=== PATIENT | female | born 1955 | race Caucasian/White ===

== ENCOUNTER → 2017-03-13 | Outpatient (CLI) | payer BC ==
[~2017-03-13] MED LIST: ATOR-54 PO; DTR5 PO; GLCSR500 PO
--- NOTE | 2017-03-15 15:31 | MAMMOGRAPHY REPORT ---
BILATERAL DIGITAL SCREENING MAMMOGRAM WITH CAD: 03/13/2017 CLINICAL HISTORY: Routine screening. Patient has no complaints. TECHNIQUE: Current study was also evaluated with a Computer Aided Detection (CAD) system. Bilateral CC and MLO views were obtained. COMPARISON: Comparison is made to exams dated: 03/07/2016 mammogram, 02/17/2014 mammogram, 02/23/2015 ma mmogram, 02/04/2013 mammogram, 01/23/2011 ultrasound, and 01/23/2011 mammogram - [facility] enter. BREAST COMPOSITION: There are scattered areas of fibroglandular density in both breasts. FINDINGS: There is a mildly prominent right axillary lymph node seen on the MLO view, which was not well-visualized on prior exams. A left axillary lymph node is partially visualized on the exam which appears similar to prior exams including the 2012 exam. Although these may represent normal axillar y lymph nodes, bilateral axillary ultrasound is recommended for further evaluation. The remainder of both breasts are stable compared to prior exams, without suspicious masses, calcific ations, or areas of architectural distortion noted. IMPRESSION: ACR BI-RADS CATEGORY 0: INCOMPLETE EVALUATION: NEED ADDITIONAL IMAGING EVALUATION Bilateral axillary lymph nodes, for which ultrasound is recommended for further evaluation. The conchita ent will be called to schedule an appointment. Approximately 10% of breast cancers are not detected with mammography. A negative mammographic report should not delay biopsy if a clinically suggestive mass is present. Estefany Fagan M.D. /:03/14/2017 17:23:37 An/Ssn 2 4 Operator: Sharon ADAMS)([place]), [facility] letter sent: Addl Imaging 0 BI-RADS Code: ACR BI-RADS Category 0: Incomplete Evaluation: Need Additional Imaging Evaluation
== END | disposition home or self-care (01) ==
LOC: C.MAMM 17:16
PROVIDERS: ATTEND Obstetrics & Gynecology
DX: Z12.31 Encounter for screening mammogram for malignant neoplasm of breast (principal); R92.8 Other abnormal and inconclusive findings on diagnostic imaging of breast

== ENCOUNTER → 2017-03-21 | Outpatient (CLI) | payer BC ==
--- NOTE | 2017-03-21 15:38 | MAMMOGRAPHY REPORT ---
ULTRASOUND OF BOTH BREASTS: 03/21/2017 CLINICAL HISTORY: 62-year-old woman called back from screening mammography for bilateral axillary lym ph nodes. COMPARISON: Comparison is made to exams dated: 03/13/2017 mammogram, 03/07/2016 mammogram, 02/23/2015 m ammogram, 02/17/2014 mammogram, 02/04/2013 mammogram, and 01/17/2011 mammogram - [facility]. FINDINGS: Targeted ultrasound was performed in both axillae. Morphologically normal lymph nodes are seen in both axillae. The largest lymph node in the right axilla midportion measures 2 cm in length and has a slightly undulating and lobulated cortex. Cortical thickness remains within normal limits and measures up to 2.5 mm. Morphologically normal lymph nodes are also identified in the left axill a, with similar appearance of the left lymph nodes with slightly undulating cortices. Cortical thick ness measuring up to 2.6 mm, which is within the range of normal. The lymph nodes seen in both axillae mammographically are most likely benign, given that they have a normal sonographic appearance, and at least the left lymph node was identified on a prior mammogram. However, given that they are newly visualized and have mildly undulating cortices, a short interval follow-up bilateral axillary ultrasound is recommended in 6 months. IMPRESSION: ACR-BI-RADS CATEGORY 3: PROBABLY BENIGN - FOLLOW-UP RECOMMENDED There are symmetric bilateral morphologically normal axillary lymph nodes that are probably benign. The patient denies any current infectious, inflammatory, autoimmune or neoplastic process. Given medhat t they are newly visualized and have mildly undulating cortices, a short interval follow-up targeted bilateral axillary ultrasound is recommended to ensure stability in 6 months. These results and recommendations were discussed with the patient at the time of the exam. Jami Urban M.D. ay/:03/21/2017 14:58:13 Eeg Technologist: Sharon ADAMS)([place]), [facility] letter sent: Follow Up Recommended 3 BI-RADS Code: ACR-BI-RADS Category 3: Probably Benign
== END | disposition home or self-care (01) ==
LOC: C.MAMM 12:45
PROVIDERS: ATTEND Obstetrics & Gynecology
DX: R59.0 Localized enlarged lymph nodes (principal)

== ENCOUNTER → 2017-05-08 | Outpatient (CLI) | payer BC ==
[2017-05-10 11:54] LABS: HERPES SIMPLEX CULT SOURCE GENITAL-VAGINAL; HERPES SIMPLEX VIRUS CULT NOT ISOLATED (NOT ISOLATED)
== END | disposition home or self-care (01) ==
LOC: C.LABSPEC 10:36
PROVIDERS: ATTEND Physician Assistant
DX: R10.2 Pelvic and perineal pain (principal)

== ENCOUNTER → 2017-07-09 | Outpatient (CLI) | payer BC ==
[~2017-07-09] MED LIST changes: +ASPCH81X PO; +CETI10TA84 PO; +DTR/5 PO; +LPT/40 PO; +METF-384 PO; +MOME6000; +MULTTAB58 PO; +OXYC-57 PO; +VITAMIN C PO
== END | disposition home or self-care (01) ==
LOC: C.PATHSPEC 17:13
PROVIDERS: ATTEND Physician Assistant
DX: A63.0 Anogenital (venereal) warts (principal); N90.0 Mild vulvar dysplasia

== ENCOUNTER → 2017-08-20 | Outpatient (CLI) | payer OTHER ==
[~2017-08-20] MED LIST changes: -ASPCH81X PO; -CETI10TA84 PO; -DTR/5 PO; -LPT/40 PO; -METF-384 PO; -MOME6000; -MULTTAB58 PO; -OXYC-57 PO; -VITAMIN C PO
--- NOTE | 2017-08-20 13:30 | MAMMOGRAPHY REPORT ---
BILATERAL DIGITAL DIAGNOSTIC MAMMOGRAM TOMOSYNTHESIS WITH CAD AND TARGETED BILATERAL ULTRASOUND: 2017 CLINICAL HISTORY: Plump bilateral axillary lymph nodes. Patient presented for follow-up. TECHNIQUE: Bilateral MLO tomosynthesis images were obtained to try to include visualization of axilla ry lymph nodes. Current study was also evaluated with a Computer Aided Detection (CAD) system. COMPARISON: Comparison is made to exams dated: 03/21/2017 ultrasound, 03/13/2017 mammogram, 03/07/2016 m ammogram, 02/23/2015 mammogram, 02/17/2014 mammogram, and 02/04/2013 mammogram - [facility] nter. BREAST COMPOSITION: The tissue of both breasts is heterogeneously dense, which may obscure small mas ses. FINDINGS: There are somewhat plump bilateral axillary lymph nodes. The trilobed lymph node projectin g over the superior right pectoralis muscle on the MLO view is stable in size comparing to the 2016 mammograms, measuring 15 mm. No definite lymph node enlargement or new lymph nodes are seen. N o new suspicious breast masses, architectural distortion, asymmetries or new microcalcifications. Targeted ultrasound was performed in both axillae. Several axillary lymph nodes are again seen bilat erally a few subpectoral lymph nodes are also identified. The largest lymph node in the right axilla is seen in the mid axilla measuring 2.1 cm in length, with cortical thickness ranging from 2.0-2.9 m m. This lymph node appears stable in size and cortical thickness comparing to the prior ultrasound. Other lymph nodes identified in the left axillary and subpectoral regions are also stable in size co mparing to the prior ultrasound. However, no prior cross-sectional imaging studies are available and the lymph nodes were not definitely seen on prior remote MLO views and the lymph nodes remain indete rminate. Lymphoid hyperplasia, infectious, inflammatory and neoplastic processes remain differential considerations. Therefore, definitive characterization with tissue sampling is recommended. IMPRESSION: ACR BI-RADS CATEGORY 4: SUSPICIOUS, TARGETED ULTRASOUND ACR BI-RADS CATEGORY 4: SUSPICIO US 1. Ultrasound-guided fine-needle aspiration versus core needle biopsy is recommended for slightly pr ominent bilateral axillary lymph nodes cortices in the upper limits of normal. Could perform FNA wit h attempted core biopsy on the most superficial lymph node identified in the left axilla. These results and recommendations were discussed with the patient at the time of the exam. She tenta tively scheduled the biopsy prior to leaving our department. Approximately 10% of breast cancers are not detected with mammography. A negative mammographic report should not delay biopsy if a clinically suggestive mass is present. Jami Urban M.D. ay/:08/20/2017 10:36:51 Veterinary Technician Instructor: Alfonso NIETO([place])([place]), [facility] letter sent: Abnormal 4/5 BI-RADS Code: ACR BI-RADS Category 4: Suspicious Ultrasound BI-RADS: ACR BI-RADS Category 4: Suspici ous
== END | disposition home or self-care (01) ==
LOC: C.MAMM 08:17
PROVIDERS: ATTEND Obstetrics & Gynecology
DX: R92.8 Other abnormal and inconclusive findings on diagnostic imaging of breast (principal); R59.0 Localized enlarged lymph nodes

== ENCOUNTER → 2017-08-29 | Outpatient (CLI) | payer OTHER ==
--- NOTE | 2017-08-29 08:56 | Discharge Instructions ---
Discharge Instructions Procedure Procedure Date: Aug 29, 2017. Reason for visit: Bilateral Lymph Node Either Or/Fna Possible Core. Discharge Discharge Date: Aug 29, 2017. Discharge Diagnosis: status post axillary biopsy Instructions Activity Recommendations: Additional Limitations (see below) Return to School/Work: no limitations Recommended Home Diet: No Limitations Provider Instructions: ACTIVITY RECOMMENDATIONS: * No lifting, pushing, pulling or exercising the affected side for three days. RETURN TO SCHOOL/WORK: * You may return to work/school after the procedure, but do not perform any strenuous activities for 24 to 48 hours. MEDICATIONS: * Tylenol (two 325 mg) every four to six hours if needed for mild pain (if not allergic to Tylenol). DIET: * Resume previous diet. SPECIAL CARE INSTRUCTIONS: * Keep biopsy site dry for 24 hours. May shower after 24 hours, but do not soak (bathe) incision. * May remove Tegaderm (plastic patch) tomorrow AFTER showering. * Leave the steri-strips on for one week. Allow the steri-strips to fall off by themselves. If not off after one week, you may remove them. You may place a Bandaid crosswise over the strips, if desired. * Apply ice 10 minutes on and 10 minutes off as needed. * Wear a bra at bedtime to sleep more comfortably for 2-3 days. * Your referring physician should have the results after approximately 5 to 7 business days. * Call for unusual bleeding, fever, drainage, etc or if you have any questions call during normal business hours or after hours call Dr Fagan, [phone]. FOLLOW UP VISIT: Follow-up with Referring Physician as scheduled. Allergies Uncoded Allergies: AMOXICILLIN (Allergy, Unknown, 07/07/05) Boris Zhong Recommendations: Call your doctor if: * Temperature above 101 degrees * Pain not relieved by pain medicine ordered * There is increased drainage or redness from any incision * You have any unanswered questions or concerns. Your Doctors Instructions noted above were prepared by provider Estefany Fagan. Patient Signature Section: Patient Instructions Signature Page Nancy Martin Patient (or Guardian) Signature/Date: I have read and understand the instructions given to me by my caregivers. Caregiver/RN/Doctor Signature/Date: The above-named patient and/or guardian has received patient instructions on this date. + Original Patient Signature Page (only) stays with chart. Please make copy for patient.
--- NOTE | 2017-08-29 15:08 | MAMMOGRAPHY REPORT ---
ULTRASOUND GUIDED BIOPSY LEFT BREAST: 08/29/2017 CLINICAL HISTORY: Prominent bilateral axillary lymph nodes. Biopsy of one of the left axillary lymph nodes was recommended for further evaluation. PATIENT CONSENT: The procedure, risks and benefits were discussed with the patient and informed writt en consent was obtained. A timeout was performed immediately prior to the procedure. PROCEDURE DESCRIPTION: With ultrasound guidance, aseptic technique, and lidocaine as the local anesth etic (1% lidocaine to anesthetize the skin and 1% lidocaine with epinephrine to anesthetize the deepe r tissues), one of the prominent left axillary lymph nodes was sampled 6 times with an 18-gauge Quick -Core biopsy needle. Immediately thereafter, with ultrasound guidance, aseptic technique, and lidoc jennifer as the local anesthetic, a metallic localizer clip was placed into the lymph node. Direct press ure was applied to the site immediately post procedure and hemostasis was achieved. The patient teresa erated the procedure without complication. She was given wound care instructions. The specimens were sent to pathology for analysis. Postprocedural mammograms were not obtained as it was felt that the clip would not be visualized due to the far posterior location of the lymph node, and the clip was w ell visualized on ultrasound. COMPARISON: Comparison is made to exams dated: 08/20/2017 mammogram, 08/20/2017 ultrasound, 03/21/2017 ult rasound, 03/13/2017 mammogram, 03/07/2016 mammogram, and 02/23/2015 mammogram - [facility] nter. IMPRESSION: ULTRASOUND GUIDED BIOPSY Ultrasound guided core needle biopsy of one of the prominent axillary lymph nodes in the left axilla, with clip placement. The patient will receive pathology results from her referring provider. Estefany Fagan M.D. ah/:08/29/2017 09:14:16 [employer] Strip Mill Supervisor: Yudith NIETO(R)(M), [facility]
== END | disposition home or self-care (01) ==
LOC: C.MAMM 08:08
PROVIDERS: ATTEND Obstetrics & Gynecology
DX: R59.0 Localized enlarged lymph nodes (principal); D47.9 Neoplasm of uncertain behavior of lymphoid, hematopoietic and related tissue, unspecified

== ENCOUNTER → 2017-09-16 | Day surgery (SDC) | payer OTHER ==
--- NOTE | 2017-09-11 14:55 | DIAGNOSTIC IMAGING REPORT ---
CHEST 2 VIEWS ROUTINE CLINICAL HISTORY: Z01.818 Pre-op testing preoperative evaluation COMPARISON STUDY: No previous studies for comparison. FINDINGS: The bones soft tissues and hemidiaphragms are normal. The cardiomediastinal silhouette is normal. The lungs are clear. The pulmonary vasculature is normal. IMPRESSION: Negative chest. The above report was generated using voice recognition software. It may contain grammatical, syntax or spelling errors. Electronically signed by: Cj Nath M.D. 09/11/2017 2:53 PM Dictated Date/Time: 09/11/2017 2:51 PM
[2017-09-11 15:33] LABS: BASO ABS # 0.06 K/uL (0-0.2); EOS % 4.5 %; EOS ABS # 0.28 K/uL (0-0.5); HEMATOCRIT 43.4 % (37-47); HEMOGLOBIN 14.3 g/dL (12.0-16.0); IG# 0.01 K/uL (0.00-0.02); LYMPH ABS # 1.88 K/uL (1.2-3.4); MEAN CELL VOLUME 88.6 fL (80-100); MEAN CORPUSCULAR HEMOGLOBIN 29.2 pg (25-34); MEAN CORPUSCULAR HGB CONC 32.9 g/dl (32-36); MEAN PLATELET VOLUME 10.4 fL (7.4-10.4); MONO % 7.5 %; MONO ABS # 0.47 K/uL (0.11-0.59); NEUT % 56.8 %; NEUT ABS # 3.57 K/uL (1.4-6.5); PLATELET COUNT 230 K/uL (130-400); RED CELL DISTRIBUTION WIDTH CV 12.3 % (11.5-14.5); RED CELL DISTRIBUTION WIDTH SD 39.3 fL (36.4-46.3); WHITE BLOOD COUNT 6.27 K/uL (4.8-10.8)
[2017-09-11 15:42] LABS: PTT PATIENT 26.1 SECONDS (21.0-31.0)
[2017-09-11 15:55] LABS: BLOOD UREA NITROGEN 19 mg/dl (7-18); CALCIUM 9.2 mg/dl (8.5-10.1); CARBON DIOXIDE 30 mmol/L (21-32); CREATININE 0.76 mg/dl (0.60-1.20); GLUCOSE 162 mg/dl (70-99); POTASSIUM 3.8 mmol/L (3.5-5.1); SODIUM 139 mmol/L (136-145)
[2017-09-12 13:25] VITALS: Ht 166.4 cm; Wt 60.9 kg
[~2017-09-16] VITALS: Ht 166.4 cm; Wt 60.9 kg
[~2017-09-16] MED LIST changes: +ASPCH81X PO; -ATOR-54 PO; +ATROPINE SULFATE 0.1 MG/ML 5ML SYR IV PRN; +BUPIVACAINE 0.5 % 5 MG/1 ML MPF 30ML VIAL ONE; +CETI10TA84 PO; +CHECK SCOPOLAMINE PATCH PLACEMENT SCH; +CLINDAMYCIN PHOS 150 MG/ML 2 ML VIAL IV SCH; +DEXAMETHASONE SOD INJ 4 MG/ML VIAL ONE; +DTR/5 PO; -DTR5 PO; +EpHEDrine SULFATE INJ 50 MG/ML AMP IV PRN; +FENTANYL CITRATE INJ 50 MCG/1 ML 2 ML VIAL ONE; -GLCSR500 PO; +HYDROmorphone INJ 1 MG/ML SYR IV PRN; +LACTATED RINGER'S 1000ML 1,000 ML IV SCH; +LIDOCAINE HCL 2% 2 ML VIAL (20MG/ML) ONE; +LPT/40 PO; +METF-384 PO; +MIDAZOLAM HCL 1 MG/ML 2ML VIAL ONE; +MOME6000; +MULTTAB58 PO; +ONDANSETRON INJ 2 MG/ML 2 ML VIAL IV PRN; +ONDANSETRON INJ 2 MG/ML 2 ML VIAL ONE; +OXYC-57 PO; +OXYCODONE/ACETAMINOPHEN 5-325 TAB PO PRN; +PROMETHAZINE HCL INJ 12.5 MG in SODIUM CHLORIDE 0.9% 50ML 50 ML IV PRN; +PROPOFOL IV EMULSION 10 MG/ML 20 ML VIAL IV ONE; +SCOPOLAMINE 1.5 MG TDSY TD ONE; +SCOPOLAMINE 1.5 MG TDSY TD SCH; +SODIUM CHLORIDE 0.9% 1000ML 1,000 ML IV SCH; +VITAMIN C PO
[2017-09-16] MEDS: LACTATED RINGER'S 1000ML 1,000 ML IV SCH ×2 (08:40→10:47)
--- NOTE | 2017-09-16 08:41 | History & Physical Bridge - SC ---
H&P Re-Evaluation Bridge Note: I have examined the patient, reviewed the History & Physical and in the interval since the performance of the History & Physical I have noted the following changes of clinical significance: Wire placed, films reviewed. No changes noted
--- NOTE | 2017-09-16 09:46 | [facility] Post Operative Brief Note ---
Immediate Operative Summary Operative Date Sep 16, 2017. Pre-Operative Diagnosis Left axillary Lymphadenopathy Post-Operative Diagnosis Same as pre-op Procedure(s) Performed Left Axillary Lymph Node Biopsy With Needle (Wire) Localization Surgeon Dr. Gonzalez Bat Boy/Girl Surgeon(s) Shira LOPEZ Estimated Blood Loss 5ML Findings Consistent with Post-Op Diagnosis Specimens A.Left axillary lymph node biopsy Out of patient @ 0924 [facility] Drains None Anesthesia Type General Complication(s) none Disposition Accompanied Pt To Recovery: no Disposition: Recovery Room / PACU
--- NOTE | 2017-09-16 09:53 | [facility] Operative Report ---
Operative Report Operative Date Sep 16, 2017. Pre-Operative Diagnosis Left axillary Lymphadenopathy Post-Operative Diagnosis Left axillary lymphadenopathy Procedure(s) Performed Wire localized left axillary lymph node excisional biopsy Surgeon Dr. Gonzalez Soliciting Freight Agent Surgeon(s) Shira LOPEZ Estimated Blood Loss 5ML Findings Wire followed to small lymph node which was excised. A few additional lymph nodes were taken. Mammography called and confirmed excisional specimen. Good hemostasis. Specimens A.Left axillary lymph node biopsy Out of patient @ 0921 Sent to breast care center B.Left axillary lymph node-fresh Drains None Anesthesia General Complication(s) None Disposition Recovery Room / PACU Indications 62-year-old female with nonpalpable lymphadenopathy seen on screening mammogram , core needle biopsy indeterminant. Plan for wire localized left axillary lymph node excisional biopsy. The risks of the procedure were discussed, all questions were answered, and the patient agreed to proceed with surgery as planned. Description of Procedure Prior to the procedure the patient went to mammography and had a wire placed in the left axilla. The films were reviewed for preoperative incisional planning. The patient was properly identified, consented, and taken to the operating room where she was placed in the supine position. General endotracheal anesthesia was induced. SCDs and a safety belt were placed. Preoperative antibiotics were administered. The patient's left axilla was prepped and draped in the standard sterile fashion. Surgical timeout was performed and all parties were in agreement that this was the correct patient and procedure to be performed and we continued as planned. Local anesthetic was injected along the skin incision. A transverse skin incision was made at the entry point of the wire in a natural skin crease in the axilla and deepened down through the subcutaneous tissue with electrocautery. The fascia was incised and the wire was followed to its terminal end. The wire appeared to be dislodged from the lymph node, but there were multiple small lymph nodes that were excised in this area. The lymphovascular bundle was ligated with 3-0 silk tie, and the lymph nodes were excised and passed off the table as specimen. These were sent to the breast center and mammography confirmed excision of the wire, specimen, and clip. An additional lymph node that was slightly larger was taken in this area and the lymphovascular bundle was tied with 3-0 silk tie. The wound was irrigated and hemostasis was confirmed. The skin was closed with interrupted 3-0 Vicryl deep dermal sutures, followed by 4-0 Monocryl running subcuticular suture. Dermabond was placed over the wound. The patient was extubated in the operating room and taken to the PACU where she recovered without apparent incident. All sponge, instrument and needle counts were correct at the conclusion of the procedure. The patient tolerated the procedure well. The physician's assistant shift supervisor was present and scrubbed for the entire to the procedure. She was essential in positioning the patient, prepping and draping, retraction and exposure, excision of the lymph nodes, closure of the incision, and placement of the dressing. I attest to the content of the Intraoperative Record and any orders documented therein. Any exceptions are noted below.
--- NOTE | 2017-09-16 10:06 | Discharge Instructions-SurgCtr ---
Discharge Instructions Date of Service Sep 16, 2017. Visit Reason for Visit: Left Axillary Lymphadenopathy Discharge Discharge Diagnosis / Problem: Left Axillary Lymphadenopathy Discharge Goals Goal(s): Decrease discomfort, Improve function Medications Stopped Medications Name(s): stopped asa x 1 week. metformin stopped x 3 days. Restart Stopped Medication(s): You may resume your Aspirin therapy tomorrow, 09/17/2017. You may resume your Metformin therapy tomorrow, 09/17/2017 Activity Recommendations Activity Limitations: as noted below Lifting Limitations: no more than 10 pounds Exercise/Sports Limitations: until after follow-up appointment May Resume Sexual Activity: after follow-up appointment Shower/Bathe: tomorrow Driving or Machine Use: resume 3 days after discharge Anesthesia . Post Anesthesia Instructions: If you have had General Anesthesia or IV Sedation: * Do not drive today. * Resume driving when surgeon permits. * Do not make important decisions or sign legal documents today. * Call surgeon for: 1. Temperature elevations greater than 101 degrees F. 2. Uncontrollable pain. 3. Excessive bleeding. 4. Persistent nausea and vomiting. 5. Medication intolerance (nausea, vomiting or rash). * For nausea and vomiting use only clear liquids such as: tea, soda, bouillon until nausea subsides, then gradually increase diet as tolerated. * If you have any concerns or questions, call your surgeon's office. If physician is unavailable and it is an emergency, call 911 or go to the nearest emergency room. . Instructions / Follow-Up Instructions / Follow-Up Please follow-up with Dr. Gonzalez in the General Surgery Clinic in 1-2 weeks. Please call the office at [phone] to make an appointment if you do not have one already. Please call the office with any questions or concerns. Diet Recommendations Home Diet: no limitations Procedures Procedures Performed: Left Axillary Lymph Node Biopsy With Needle (Wire) Localization Pending Studies Studies pending at discharge: yes List of pending studies: Pathology report. Medical Emergencies . Who to Call and When: Medical Emergencies: If at any time you feel your situation is an emergency, please call 911 immediately. . Non-Emergent Contact Non-Emergency issues call your: Primary Care Provider, Surgeon Call Non-Emergent contact if: temperature is above 101.5, your pain is not controlled, wound has increased drainage, wound has increased redness . . "Provider Documentation" section prepared by Ese Parsons. . [place] Drug Monitoring Program Search Results: patient reviewed within database, no issues identified
[2017-09-16] MEDS: FENTANYL CITRATE INJ 50 MCG/1 ML 2 ML VIAL IV PRN ×4 (10:21→10:52)
[2017-09-16 11:22] VITALS: TEMP 36.7
[2017-09-16 11:50] VITALS: BP 115/79; PULSE 83; O2SAT 95
--- NOTE | 2017-09-16 11:50 | Anesthesia Progress Nt - [facility] ---
Anesthesia Post Op Note Date & Time Sep 16, 2017 at 11:50 Vital Signs Pain Intensity: 2.0 Vital Signs Past 12 Hours Date Time Temp Pulse Resp B/P (MAP) Pulse Ox O2 Delivery O2 Flow Rate FiO2 09/16/17 11:22 36.7 60 16 138/84 (102) 97 Room Air 09/16/17 11:12 123/72 09/16/17 11:10 62 9 95 09/16/17 11:10 62 9 09/16/17 11:10 36.3 63 20 123/72 97 Room Air 09/16/17 11:07 128/74 09/16/17 11:05 60 13 92 09/16/17 11:05 58 13 09/16/17 11:02 114/71 09/16/17 11:00 60 15 97 09/16/17 11:00 59 15 09/16/17 10:58 122/70 09/16/17 10:55 57 19 100 09/16/17 10:55 57 19 09/16/17 10:54 57 14 100 09/16/17 10:54 57 14 09/16/17 10:52 123/72 09/16/17 10:49 61 21 100 09/16/17 10:49 59 21 09/16/17 10:48 123/71 09/16/17 10:44 57 11 09/16/17 10:44 56 11 100 09/16/17 10:43 131/75 09/16/17 10:39 58 12 100 09/16/17 10:39 59 12 09/16/17 10:38 131/71 09/16/17 10:34 58 8 100 09/16/17 10:34 58 8 09/16/17 10:33 129/73 09/16/17 10:29 60 10 09/16/17 10:29 61 10 100 09/16/17 10:28 128/75 09/16/17 10:24 60 7 100 09/16/17 10:24 61 7 09/16/17 10:22 138/77 09/16/17 10:19 59 18 09/16/17 10:19 57 18 100 09/16/17 10:17 125/77 09/16/17 10:16 125/77 09/16/17 10:14 65 22 100 09/16/17 10:14 62 22 09/16/17 10:11 132/76 09/16/17 10:09 70 19 09/16/17 10:09 67 19 100 09/16/17 10:06 131/77 09/16/17 10:04 66 16 100 09/16/17 10:04 62 16 09/16/17 10:01 122/76 09/16/17 10:00 127/81 09/16/17 09:59 36.7 82 16 127/81 99 Mask 6 09/16/17 07:28 36.8 80 18 116/72 (87) 95 Room Air Notes Mental Status: alert / awake / arousable, participated in evaluation Pt Amnestic to Procedure: Yes Nausea / Vomiting: adequately controlled Pain: adequately controlled Airway Patency, RR, SpO2: stable & adequate BP & HR: stable & adequate Hydration State: stable & adequate Anesthetic Complications: no major complications apparent
--- NOTE | 2017-09-16 15:39 | MAMMOGRAPHY REPORT ---
SPECIMEN: 09/16/2017 CLINICAL HISTORY: Excisional biopsy of a left axillary lymph node. Please refer to the report from left axilla ultrasound-guided needle localization performed at the [facility] time for full detail. IMPRESSION: SPECIMEN Please refer to the report from left axilla ultrasound-guided needle localization performed at the [facility] time for full detail. Jami Urban M.D. ay/:09/16/2017 09:31:57 Die Press Operator: Alfonso NIETO([place])(M), [facility]
--- NOTE | 2017-09-16 15:39 | MAMMOGRAPHY REPORT ---
NEEDLE LOCALIZATION LEFT BREAST: 09/16/2017 CLINICAL HISTORY: 62-year-old woman in which a recent left axillary lymph node biopsy yielded atypica l lymphoid proliferation. Surgical excision recommended. She presents for preoperative wire localiz ation of the biopsy lymph node, prior to excisional biopsy. COMPARISON: Comparison is made to exams dated: 08/29/2017 ultrasound biopsy, 08/20/2017 mammogram, 2017 ultrasound, 03/21/2017 ultrasound, 03/13/2017 mammogram, and 03/07/2016 mammogram - [facility]. PATIENT CONSENT: The risks of the procedure were explained to the patient and informed consent was ob tained. The patient denied eating or drinking anything this morning that would preclude anesthesia. She also denied allergy to lidocaine. PROCEDURE DESCRIPTION: First targeted ultrasound was performed in the left axilla to evaluate for the previously biopsied lymph node that yielded an atypical lymphoid proliferation. This lymph node is seen and the linear/ribbon-shaped biopsy marker clip is identified within. This is the intended targ et for localization. The skin of the left axilla was cleansed with Betadine and sterile drapes were placed. 1% buffered l idocaine without epinephrine was administered as local anesthesia. A 5 cm Perry 2 needle and wire combination were inserted into the lymph node and the needle was removed leaving the wire in place. The patient tolerated the procedure well and there was no immediate complication. She was transferre d to the operating room in satisfactory condition. The specimen radiograph demonstrates the localizing wire and the ribbon-shaped biopsy marker clip, co mpatible with successful preoperative localization and subsequent surgical excision. IMPRESSION: NEEDLE LOCALIZATION Status post preoperative wire localization for a left axillary lymph node which yielded atypical lymp hoid proliferation. The imaged specimen includes the biopsy marker clip and intended lymph node. The patient will receive notification of the pathology results from her referring physician. Jami Urban M.D. ay/:09/16/2017 10:29:56 Records Management Clerk: Alfonso ADAMS)(M), [facility]
== END ==
LOC: X.SURG 07:19
PROVIDERS: ATTEND Surgery
DX: R59.0 Localized enlarged lymph nodes (principal); E11.9 Type 2 diabetes mellitus without complications; E78.00 Pure hypercholesterolemia, unspecified; M85.80 Other specified disorders of bone density and structure, unspecified site; Z98.890 Other specified postprocedural states; Z79.82 Long term (current) use of aspirin; Z79.899 Other long term (current) drug therapy; Z88.1 Allergy status to other antibiotic agents; Z83.3 Family history of diabetes mellitus; Z82.5 Family history of asthma and other chronic lower respiratory diseases; Z82.49 Family history of ischemic heart disease and other diseases of the circulatory system

== ENCOUNTER → 2018-03-10 | Outpatient (CLI) | payer BC, OTHER ==
[~2018-03-10] MED LIST changes: -ATROPINE SULFATE 0.1 MG/ML 5ML SYR IV PRN; -BUPIVACAINE 0.5 % 5 MG/1 ML MPF 30ML VIAL ONE; -CHECK SCOPOLAMINE PATCH PLACEMENT SCH; -CLINDAMYCIN PHOS 150 MG/ML 2 ML VIAL IV SCH; -DEXAMETHASONE SOD INJ 4 MG/ML VIAL ONE; -EpHEDrine SULFATE INJ 50 MG/ML AMP IV PRN; -FENTANYL CITRATE INJ 50 MCG/1 ML 2 ML VIAL ONE; -HYDROmorphone INJ 1 MG/ML SYR IV PRN; -LACTATED RINGER'S 1000ML 1,000 ML IV SCH; -LIDOCAINE HCL 2% 2 ML VIAL (20MG/ML) ONE; -MIDAZOLAM HCL 1 MG/ML 2ML VIAL ONE; -ONDANSETRON INJ 2 MG/ML 2 ML VIAL IV PRN; -ONDANSETRON INJ 2 MG/ML 2 ML VIAL ONE; -OXYC-57 PO; -OXYCODONE/ACETAMINOPHEN 5-325 TAB PO PRN; -PROMETHAZINE HCL INJ 12.5 MG in SODIUM CHLORIDE 0.9% 50ML 50 ML IV PRN; -PROPOFOL IV EMULSION 10 MG/ML 20 ML VIAL IV ONE; -SCOPOLAMINE 1.5 MG TDSY TD ONE; -SCOPOLAMINE 1.5 MG TDSY TD SCH; -SODIUM CHLORIDE 0.9% 1000ML 1,000 ML IV SCH
--- NOTE | 2018-03-10 14:22 | DIAGNOSTIC IMAGING REPORT ---
R EXTREMITY NONVASCULAR LIMITED CLINICAL HISTORY: RT AXILLA, LYMPHADENOPATHY COMPARISON STUDY: Right breast/axilla ultrasound 08/20/2017. FINDINGS: A right axillary lymph node is identified. This measures approximately 1.8 x 0.8 x 1.6 cm. The cortex measures less than 3 mm. There is a normal fatty hilum. This is similar to the prior study. IMPRESSION: Similar appearing right axillary lymph node. Electronically signed by: Bright Bowen M.D. 03/10/2018 2:21 PM Dictated Date/Time: 03/10/2018 2:08 PM
== END | disposition home or self-care (01) ==
LOC: C.ULTR 12:48
PROVIDERS: ATTEND Internal Medicine Hematology & Oncology
DX: R59.0 Localized enlarged lymph nodes (principal)